=== PATIENT | male | born 1985 | race Caucasian/White ===

== ENCOUNTER → 2020-05-21 | Outpatient (CLI) | payer OTHER | END | disposition home or self-care (01) | LOC: LABWHC1 12:03 | PROVIDERS: ATTEND Student in an Organized Health Care Education/Training Program | DX: Z01.818 Encounter for other preprocedural examination (principal); Z20.828 Contact with and (suspected) exposure to other viral communicable diseases | CPT/HCPCS: U0003; C9803 ==

== ENCOUNTER 2020-05-28 08:06 | Day surgery (SDC) | payer OTHER ==
[2020-05-26 16:17] VITALS: BMI 23.6
[~2020-05-28 08:06] MED LIST: LACTATED RINGERS 1,000 ML IV SCH; LIDOCAINE 1% (10MG/ML) FOR IV START INTRADERMA PRN
[2020-05-28 08:50] VITALS: TEMP 98
[2020-05-28] MEDS ORDERED: LIDOCAINE 1% INJ 10MG/ML (20 ML MDV) ONE (09:07)
[2020-05-28] MEDS ORDERED: PROPOFOL 10 MG/ML 20 ML VIAL IV ONE (09:07)
--- NOTE | 2020-05-28 09:29 | P.OP ---
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 Scope was passed through the oropharynx down the esophagus with ease under direct visualization and the first and second portion of the duodenum no abnormalities are noted scope was withdrawn to the stomach and retroflexed and sure to visualize all iglesias of the stomach no gross abnormalities are noted ample time was allowed for the stomach insufflated no significant hiatal hernia was noted biopsy of the antrum was taken to rule out H. pylori the stomach was desufflated and the scope was withdrawn to the GE junction were no gross abnormalities are noted scope was then slowly withdrawn through the esophagus and no other abnormalities are noted patient tolerated this well he was then turned and rectal exam was performed no gross abnormalities are noted scope was passed from the rectum of the cecum with ease and slowly withdrawn being sure to visualize all iglesias of the colon on the way out no gross abnormalities are noted patient tolerated the procedure well no apparent complications he'll follow-up in one year for repeat endoscopy due to his high risk genetic history.
[2020-05-28 09:48] VITALS: RESP 16
[2020-05-28 09:54] VITALS: BP 124/61; PULSE 75
== END 2020-05-28 10:03 | disposition home or self-care (01) ==
LOC: ORWHC2ENDO 08:06
PROVIDERS: ATTEND Student in an Organized Health Care Education/Training Program
DX: Z12.11 Encounter for screening for malignant neoplasm of colon (principal); K21.9 Gastro-esophageal reflux disease without esophagitis; Z80.0 Family history of malignant neoplasm of digestive organs; Z15.09 Genetic susceptibility to other malignant neoplasm; F32.9 Major depressive disorder, single episode, unspecified; Z98.890 Other specified postprocedural states; Z85.9 Personal history of malignant neoplasm, unspecified
CPT/HCPCS: 43239; 88305; G0105; J2001; J2704; 45378